=== PATIENT | female | born 1955 | race Caucasian/White ===

== ENCOUNTER 2019-07-10 09:49 | Inpatient (IN) | payer BC, MEDICARE ==
[~2019-07-10 09:49] MED LIST: Bisacodyl 5 MG Tab PO PRN; Cyclobenzaprine 10 MG Tab PO PRN; EPINEPHrine 1 MG/ML SDV ONE; HYDROmorphone 0.5 MG/0.5 ML Syringe IVPUSH PRN; Lactated Ringers 1,000 ML IV SCH; Lidocaine 1% 4 ML ONE; Lidocaine 1%/Sod Bicarbonate in NS 8.4% 1 ML Syringe IDERM PRN; Magnesium Hydroxide 400 MG/5 ML Susp 30 ML Cup PO PRN; Midazolam 1 MG/ML 2 ML SDV ONE; Naloxone 0.4 MG/ML SDV IVPUSH PRN; Ondansetron 4 MG/2 ML SDV IVPUSH PRN; Ondansetron 4 MG/2 ML SDV ONE; Propofol 200 MG/20 ML SDV ONE; Ropivacaine 0.5% 5 MG/ML 30 ML SDV ONE; Sennosides 8.6 MG Tab PO PRN; Sodium Chloride 0.9% 10 ML Syringe FLUSH PRN
[2019-07-10] MEDS ORDERED: Scopolamine 1.5 MG Transdermal Patch TOP SCH (10:18)
[2019-07-10] MEDS ORDERED: ceFAZolin 1 GM Vial ONE (10:27)
[2019-07-10] MEDS ORDERED: Bupivacaine 0.25% 10 ML SDV ONE (10:27)
[2019-07-10] MEDS ORDERED: fentaNYL 100 MCG/2 ML SDV IVPUSH PRN (10:33)
[2019-07-10] MEDS ORDERED: diphenhydrAMINE 50 MG/ML SDV IVPUSH PRN (10:33)
[2019-07-10] MEDS ORDERED: Ondansetron 4 MG/2 ML SDV IVPUSH PRN (10:33)
--- NOTE | 2019-07-10 10:37 | PCM.PREANE ---
Preanesthetic Assessment - Procedure Proposed Procedure: Left total knee arthroplasty - Anesthesia/Transfusion/Family Hx Anesthesia History: Prior Anesthesia Reaction Type of Anesthesia Reaction: Excessive Nausea/Vomiting (scop patch ordered ) Family History of Anesthesia Reaction: No Transfusion History: No Prior Transfusion(s) Intubation History: Unknown - Review of Systems General: No Symptoms Pulmonary: No Symptoms, Other (MEERA no CPAP) Cardiovascular: No Symptoms Gastrointestinal: No Symptoms Neurological: Tingling (left hand tingles due to neck per patient ) Other: Reports: None - Physical Assessment NPO Status Date: 07/09/19 NPO Status Time: 20:00 Vital Signs: Last Vital Signs Temp 36.7 C 07/10/19 10:10 Pulse 68 07/10/19 10:10 Resp 16 07/10/19 10:10 BP 160/93 H 07/10/19 10:10 Pulse Ox 94 L 07/10/19 10:10 Height: 1.6 m Weight: 85.132 kg ASA Class: 3 Mental Status: Alert & Oriented x3 Airway Class: Mallampati = 3 Dentition: Reports: Normal Dentition Thyro-Mental Finger Breadths: 3 Mouth Opening Finger Breadths: 4 ROM/Head Extension: Limited/Partial (pain and stiffness in neck due to DDD) Lungs: Clear to Auscultation, Normal Respiratory Effort Cardiovascular: Regular Rate, Regular Rhythm - Lab Values: Laboratory Last Values MRSA (PCR) Negative 06/30/19 13:10 - Allergies Allergies/Adverse Reactions: Allergies Allergy/AdvReac Type Severity Reaction Status Date / Time egg Allergy Anaphylactic Verified 07/07/19 12:46 Shock Penicillins Allergy Itching Verified 07/07/19 12:46 Sulfa (Sulfonamide Allergy Itching Verified 07/07/19 12:46 Antibiotics) morphine AdvReac Nausea and Verified 07/10/19 10:22 Vomiting [id number]-Pye-Cjv Reductase AdvReac Muscle Verified 07/07/19 13:00 Inhibitor Weakness - Blood Blood Available: No - Anesthesia Plan Pre-Op Medication Ordered: None - Acknowledgements Anesthesia Type Planned: Spinal Pt an Appropriate Candidate for the Planned Anesthesia: Yes Alternatives and Risks of Anesthesia Discussed w Pt/Guardian: Yes Pt/Guardian Understands and Agrees with Anesthesia Plan: Yes PreAnesthesia Questionnaire HEENT History: Reports: Impaired Vision Cardiovascular History: Reports: High Cholesterol Respiratory History: Reports: Sleep Apnea Gastrointestinal History: Reports: Irritable Bowel Syndrome, [employer] History: Reports: None Musculoskeletal History: Reports: Arthritis Other Musculoskeletal History: knee pain, low back pain Neurological History: Reports: Other (See Below) Other Neuro History: degenerative disc disease Psychiatric History: Reports: None Endocrine/Metabolic History: Reports: None Hematologic History: Reports: None Immunologic History: Reports: None Oncologic (Cancer) History: Reports: None Dermatologic History: Reports: Other (See Below) Other Dermatologic History: left forearm skin lesion - Past Surgical History Head Surgeries/Procedures: Reports: None HEENT Surgical History: Reports: Cataract Surgery, LASIK, Tonsillectomy Cardiovascular Surgical History: Reports: None Respiratory Surgical History: Reports: None GI Surgical History: Reports: None Female Surgical History: Reports: D&C, Tubal Ligation Male Surgical History: Reports: None Endocrine Surgical History: Reports: None Neurological Surgical History: Reports: None Oncologic Surgical History: Reports: None Dermatological Surgical History: Reports: None - SUBSTANCE USE Smoking Status *Q: Former Smoker Second Hand Smoke Exposure: No Days Per Week of Alcohol Use: 5 Number of Drinks Per Day: 1 Total Drinks Per Week: 5 Recreational Drug Use History: No - HOME MEDS Home Medications: Home Meds Acetaminophen [Tylenol Arthritis] 650 mg PO Q4HR PRN 07/07/19 [History] Ascorbic Acid [Vitamin C] 1,000 mg PO DAILY 07/07/19 [History] Calcium Carbonate [Calcium] 600 mg PO DAILY 07/07/19 [History] Cannabidiol (Cbd) Extract [CBD Oil] 2 cap PO BID 07/07/19 [History] Cholecalciferol (Vitamin D3) [Vitamin D3] 5,000 unit PO DAILY 07/07/19 [History] Cinnamon Bark [Cinnamon] 500 mg PO BID 07/07/19 [History] Cyanocobalamin (Vitamin B-12) [Vitamin B-12] 1,000 mcg PO DAILY 07/07/19 [ History] DULoxetine HCl [Duloxetine HCl] 60 mg PO DAILY 07/07/19 [History] Fluticasone Propionate [Flonase] 1 dose NASBOTH ASDIRECTED PRN 07/07/19 [History ] Lutein 6 mg PO DAILY 07/07/19 [History] Magnesium 250 mg PO BID 07/07/19 [History] Melatonin 10 mg PO BEDTIME PRN 07/07/19 [History] Maceo-3/DHA/Epa/Fish Oil [Fish Oil Dr 500 mg Softgel] 500 mg PO BID 07/07/19 [ History] Ubidecarenone [Coq-10] 200 mg PO DAILY 07/07/19 [History] - CURRENT (IN HOUSE) MEDS Current Meds: Current Medications Hydrocodone Bitart/Acetaminophen ([place] 325-5 Mg) 1 - 2 tab PO Q4H PRN PRN Reason: Pain Aspirin (Ecotrin) 325 mg PO BID [facility] Bisacodyl (Dulcolax) 5 mg PO DAILY PRN PRN Reason: Constipation Morphine Sulfate 8 mg/Epinephrine HCl 0.3 mg/Cefuroxime Sodium 750 mg/Ketorolac Tromethamine 30 mg/Sodium Chloride 27.9 ml 0 mg .XX ONETIME ONE Stop: 07/10/19 06:40 Cyclobenzaprine HCl (Flexeril) 5 mg PO BID PRN PRN Reason: Spasms Docusate Sodium (Colace) 100 mg PO BID [facility] Famotidine (Pepcid) 20 mg PO Q12H [facility] Hydromorphone HCl (Dilaudid) 0.2 mg IVPUSH Q2H PRN PRN Reason: Pain (moderate 4-6) Lactated Ringer's (Ringers, Lactated) 1,000 mls @ 125 mls/hr IV ASDIRECTED [facility] Stop: 07/10/19 23:00 Last Admin: 07/10/19 10:25 Dose: 125 mls/hr Cefazolin Sodium/Dextrose 2 gm (/ Premix) 50 mls @ 100 mls/hr IV Q8H [facility] Stop: 07/10/19 23:14 Ketorolac Tromethamine (Toradol) 15 mg IVPUSH Q6H PRN PRN Reason: Pain Lidocaine/Sodium Bicarbonate (Buffered Lidocaine 1% In Ns 8.4%) 0.25 ml IDERM ONETIME PRN PRN Reason: Prior to IV Start Stop: 07/10/19 18:00 Magnesium Hydroxide (Milk Of Magnesia) 30 ml PO BID PRN PRN Reason: Constipation Naloxone HCl (Narcan) 0.1 mg IVPUSH Q5M PRN PRN Reason: Oversedation Ondansetron HCl (Zofran) 4 mg IVPUSH Q6H PRN PRN Reason: Nausea/Vomiting Scopolamine (Transderm-Scop) 1.5 mg TOP ONETIME [facility] Stop: 07/10/19 16:00 Last Admin: 07/10/19 10:30 Dose: 1.5 mg Senna (Senna) 8.6 mg PO BID PRN PRN Reason: Constipation Sodium Chloride (Saline Flush) 10 ml FLUSH ASDIRECTED PRN PRN Reason: Keep Vein Open Stop: 07/10/19 18:00 Discontinued Medications Bupivacaine HCl (Sensorcaine-Mpf 0.25%) Confirm Administered Dose 30 ml .ROUTE .STK-MED ONE Stop: 07/10/19 10:28 Cefazolin Sodium (Ancef) Confirm Administered Dose 2 gm .ROUTE .STK-MED ONE Stop: 07/10/19 09:19 Cefazolin Sodium (Ancef) Confirm Administered Dose 2 gm .ROUTE .STK-MED ONE Stop: 07/10/19 10:28 Epinephrine HCl (Adrenalin) Confirm Administered Dose 1 mg .ROUTE .STK-MED ONE Stop: 07/10/19 08:56 Lidocaine HCl (Xylocaine-Mpf 1%) Confirm Administered Dose 4 mls @ as directed .ROUTE .STK-MED ONE Stop: 07/10/19 09:17 Iodine (Iodine 2% Mild Tincture) Confirm Administered Dose 30 ml .ROUTE .STK- MED ONE Stop: 07/10/19 10:28 Midazolam HCl (Versed 1 Mg/Ml) Confirm Administered Dose 2 mg .ROUTE .STK-MED ONE Stop: 07/10/19 09:15 Ondansetron HCl (Zofran) Confirm Administered Dose 4 mg .ROUTE .STK-MED ONE Stop: 07/10/19 09:18 Propofol (Diprivan 20 Ml) Confirm Administered Dose 200 mg .ROUTE .STK-MED ONE Stop: 07/10/19 09:15 Ropivacaine (Naropin 0.5%) Confirm Administered Dose 30 ml .ROUTE .STK-MED ONE Stop: 07/10/19 08:56 Tranexamic Acid (Cyklokapron) Confirm Administered Dose 1,000 mg .ROUTE .STK- MED ONE Stop: 07/10/19 10:28 Vancomycin HCl (Vancomycin) Confirm Administered Dose 1 gm .ROUTE .STK-MED ONE Stop: 07/10/19 10:28
[2019-07-10] MEDS ORDERED: Ketorolac 15 MG/ML SDV IVPUSH PRN (12:00)
[2019-07-10] MEDS: ceFAZolin 1 GM Vial ONE ×2 (12:54→13:16)
[2019-07-10] MEDS: Bupivacaine 0.25% 10 ML SDV ONE ×2 (12:54→13:20)
[2019-07-10] MEDS: Morphine 8 MG, EPINEPHrine 0.3 MG, Cefuroxime 750 MG, Ketorolac 30 MG, Sodium Chloride ... ONE ×10 (12:55→13:20)
[2019-07-10] MEDS: Iodine/Sodium Iodide 2% Tincture 30 ML Bottle ONE ×2 (12:55→13:15)
[2019-07-10] MEDS: Vancomycin 1 GM SDV ONE ×2 (12:56→13:24)
--- NOTE | 2019-07-10 13:57 | PCM.POSTAN ---
POST ANESTHESIA ASSESSMENT - MENTAL STATUS Mental Status: Alert - VITAL SIGNS Vital Signs: 98/61,97 2L, 92, 17, 97.7 Last Vital Signs Temp 36.7 C 07/10/19 10:10 Pulse 68 07/10/19 10:10 Resp 16 07/10/19 10:10 BP 160/93 H 07/10/19 10:10 Pulse Ox 94 L 07/10/19 10:10 - RESPIRATORY Respiratory Status: Respiratory Rate WNL, Airway Patent, O2 Saturation Stable, Supplemental Oxygen - CARDIOVASCULAR CV Status: Pulse Rate WNL, Blood Pressure Stable - GASTROINTESTINAL GI Status: No Symptoms - PAIN Pain Score: 0 - POST OP HYDRATION Hydration Status: Adequate & Stable
--- NOTE | 2019-07-10 14:17 | PCM.SN ---
- Free Text/Narrative Note: Left selective femoral nerve block at the adductor canal for post-procedure pain control under US guidance requested by Dr. Salas. Time Out: 1356 Start: 1356 End: 1405 Chart reviewed. Consent signed. Questions answered. Appropriate monitors applied. Time out performed. Left mid-shaft femur identified with ultrasound, scanning medially of femur, the femoral artery in the adductor canal visualized , and the femoral nerve located laterally to the artery. The skin was prepped lateral to the ultrasound probe with chlorahexadine times two. The 21ga 4 insulated block needle was inserted under direct ultrasound guidance into the adductor canal. 25mL of 0.5% ropivacaine with 1:200,000 epinephrine was injected circumferentially around the nerve with intermittent negative aspiration noted. Patient tolerated the procedure well. Sterile technique noted along with sterile gloves, mask, and sterile probe cover. See picture on progress note and vital signs on nurses notes. Block completed in PACU. Dewayne Samayoa CRNA
--- NOTE | 2019-07-10 14:32 | CR ---
Left knee: AP and lateral views of the left knee were obtained. Comparison: No prior left knee study. Knee prosthesis is seen. Components are aligned. Soft tissue air is noted. No acute bony abnormality is seen. Impression: 1. Satisfactory radiographic appearance of recently placed left knee prosthesis. Diagnostic code #2
[2019-07-10] MEDS ORDERED: Melatonin 3 MG Tab PO PRN (15:17)
[2019-07-10] MEDS ORDERED: FLUTICASONE PROPIONATE NASBOTH PRN (15:17)
[2019-07-10] MEDS: Acetaminophen/HYDROcodone 325-5 MG Tab PO PRN ×2 (17:15→21:09)
[2019-07-10] MEDS: ceFAZolin 2 GM in Premix Bag 1 BAG IV SCH (19:02)
[2019-07-10] MEDS: Docusate Sodium 100 MG Cap PO SCH (21:09)
[2019-07-10] MEDS: Famotidine 20 MG Tab PO SCH (21:09)
[2019-07-11] MEDS: Acetaminophen/HYDROcodone 325-5 MG Tab PO PRN ×3 (01:56→12:24)
[2019-07-11] MEDS: ceFAZolin 2 GM in Premix Bag 1 BAG IV SCH ×2 (02:55→10:16)
--- NOTE | 2019-07-11 07:47 | PCM.SURGPN ---
- General Info Date of Service: 07/11/19 POD#: 1 Functional Status: Reports: Pain Controlled, Tolerating Diet, Ambulating, Urinating, Incentive Spirometry, Other (The pt states she is doing well. Nursing states the pt has been doing well and pain is controlled.) - Patient Data Vitals - Most Recent: Last Vital Signs Temp 97.5 F 07/11/19 06:15 Pulse 81 07/11/19 06:15 Resp 15 07/10/19 19:41 BP 97/45 L 07/11/19 06:15 Pulse Ox 99 07/11/19 06:40 Weight - Most Recent: 187 lb 10.931 oz I&O - Last 24 Hours: Intake & Output 07/10/19 07/11/19 07/11/19 22:59 06:59 14:59 Intake Total 180 Balance 180 Lab Results Last 24 Hrs: Laboratory Results - last 24 hr 07/11/19 07/11/19 Range/Units 06:00 06:00 WBC 7.26 (3.98-10.04) K/mm3 RBC 3.56 L (3.98-5.22) M/mm3 Hgb 10.5 L (11.2-15.7) gm/dl Hct 32.9 L (34.1-44.9) % MCV 92.4 (79.4-94.8) fl MCH 29.5 (25.6-32.2) pg MCHC 31.9 L (32.2-35.5) g/dl RDW Std Deviation 39.3 (36.4-46.3) fL Plt Count 250 (182-369) K/mm3 MPV 9.3 L (9.4-12.3) fl Sodium 138 (136-145) mEq/L Potassium 4.0 (3.5-5.1) mEq/L Chloride 103 (98-107) mEq/L Carbon Dioxide 29 (21-32) mEq/L Anion Gap 10.0 (5-15) BUN 15 (7-18) mg/dL Creatinine 0.8 (0.55-1.02) mg/dL Est Cr Clr Drug Dosing 57.99 mL/min Estimated GFR (MDRD) > 60 (>60) mL/min BUN/Creatinine Ratio 18.8 H (14-18) Glucose 105 (80-115) mg/dL Calcium 8.7 (8.5-10.1) mg/dL Total Bilirubin 0.5 (0.2-1.0) mg/dL AST 15 (15-37) U/L ALT 21 (14-59) U/L Alkaline Phosphatase 72 (46-116) U/L Total Protein 5.9 L (6.4-8.2) g/dl Albumin 2.9 L (3.4-5.0) g/dl Globulin 3.0 gm/dL Albumin/Globulin Ratio 1.0 (1-2) Med Orders - Current: Current Medications Hydrocodone Bitart/Acetaminophen ([place] 325-5 Mg) 1 - 2 tab PO Q4H PRN PRN Reason: Pain Last Admin: 07/11/19 05:57 Dose: 2 tab Aspirin (Ecotrin) 325 mg PO BID [facility] Bisacodyl (Dulcolax) 5 mg PO DAILY PRN PRN Reason: Constipation Calcium Carbonate/Glycine (Calcium Carbonate) 600 mg PO DAILY [facility] Cholecalciferol (Vitamin D3) 5,000 unit PO DAILY [facility] Cyanocobalamin (Vitamin B12) 1,000 mcg PO DAILY [facility] Cyclobenzaprine HCl (Flexeril) 5 mg PO BID PRN PRN Reason: Spasms Docusate Sodium (Colace) 100 mg PO BID [facility] Last Admin: 07/10/19 21:09 Dose: 100 mg Duloxetine HCl (Cymbalta) 60 mg PO DAILY [facility] Famotidine (Pepcid) 20 mg PO Q12H [facility] Last Admin: 07/10/19 21:09 Dose: 20 mg Hydromorphone HCl (Dilaudid) 0.2 mg IVPUSH Q2H PRN PRN Reason: Pain (moderate 4-6) Cefazolin Sodium/Dextrose 2 gm (/ Premix) 50 mls @ 100 mls/hr IV Q8H [facility] Stop: 07/11/19 11:29 Last Infusion: 07/11/19 03:45 Dose: Infused Ketorolac Tromethamine (Toradol) 15 mg IVPUSH Q6H PRN PRN Reason: Pain Magnesium Hydroxide (Milk Of Magnesia) 30 ml PO BID PRN PRN Reason: Constipation Magnesium Oxide (Magnesium Oxide) 400 mg PO BID [facility] Melatonin (Melatonin) 9 mg PO BEDTIME PRN PRN Reason: Insomnia Naloxone HCl (Narcan) 0.1 mg IVPUSH Q5M PRN PRN Reason: Oversedation Ondansetron HCl (Zofran) 4 mg IVPUSH Q6H PRN PRN Reason: Nausea/Vomiting Last Admin: 07/11/19 06:03 Dose: 4 mg Senna (Senna) 8.6 mg PO BID PRN PRN Reason: Constipation Discontinued Medications Bupivacaine HCl (Sensorcaine-Mpf 0.25%) Confirm Administered Dose 30 ml .ROUTE .STK-MED ONE Stop: 07/10/19 10:28 Bupivacaine HCl (Sensorcaine-Mpf 0.25%) Confirm Administered Dose 10 ml .ROUTE .STK-MED ONE Stop: 07/10/19 10:54 Last Admin: 07/10/19 13:20 Dose: 30 ml Cefazolin Sodium (Ancef) Confirm Administered Dose 2 gm .ROUTE .STK-MED ONE Stop: 07/10/19 09:19 Last Admin: 07/10/19 13:16 Dose: 2 gm Cefazolin Sodium (Ancef) Confirm Administered Dose 2 gm .ROUTE .STK-MED ONE Stop: 07/10/19 10:28 Morphine Sulfate 8 mg/Epinephrine HCl 0.3 mg/Cefuroxime Sodium 750 mg/Ketorolac Tromethamine 30 mg/Sodium Chloride 27.9 ml 0 mg .XX ONETIME ONE Stop: 07/10/19 11:31 Last Admin: 07/10/19 13:20 Dose: 788.3 mg Diphenhydramine HCl (Benadryl) 25 mg IVPUSH Q6H PRN PRN Reason: pruritis Stop: 07/10/19 13:00 Epinephrine HCl (Adrenalin) Confirm Administered Dose 1 mg .ROUTE .STK-MED ONE Stop: 07/10/19 08:56 Fentanyl (Sublimaze) 50 mcg IVPUSH Q5M PRN PRN Reason: Pain Stop: 07/10/19 13:00 Lactated Ringer's (Ringers, Lactated) 1,000 mls @ 125 mls/hr IV ASDIRECTED [facility] Stop: 07/10/19 23:00 Last Admin: 07/10/19 10:25 Dose: 125 mls/hr Lidocaine HCl (Xylocaine-Mpf 1%) Confirm Administered Dose 4 mls @ as directed .ROUTE .STK-MED ONE Stop: 07/10/19 09:17 Iodine (Iodine 2% Mild Tincture) Confirm Administered Dose 30 ml .ROUTE .STK- MED ONE Stop: 07/10/19 10:28 Last Admin: 07/10/19 13:15 Dose: 18 ml Lidocaine/Sodium Bicarbonate (Buffered Lidocaine 1% In Ns 8.4%) 0.25 ml IDERM ONETIME PRN PRN Reason: Prior to IV Start Stop: 07/10/19 18:00 Last Admin: 07/10/19 10:24 Dose: 0.25 ml Midazolam HCl (Versed 1 Mg/Ml) Confirm Administered Dose 2 mg .ROUTE .STK-MED ONE Stop: 07/10/19 09:15 Non-Formulary Medication (Fluticasone Propionate [Flonase]) 1 dose NASBOTH ASDIRECTED PRN PRN Reason: as directed Non-Formulary Medication (Lutein [Lutein]) 6 mg PO DAILY [facility] Non-Formulary Medication (Ubidecarenone) 200 mg PO DAILY [facility] Ondansetron HCl (Zofran) Confirm Administered Dose 4 mg .ROUTE .STK-MED ONE Stop: 07/10/19 09:18 Ondansetron HCl (Zofran) 4 mg IVPUSH ONETIME PRN PRN Reason: Nausea/Vomiting Stop: 07/10/19 13:00 Last Admin: 07/10/19 14:11 Dose: 4 mg Propofol (Diprivan 20 Ml) Confirm Administered Dose 200 mg .ROUTE .STK-MED ONE Stop: 07/10/19 09:15 Ropivacaine (Naropin 0.5%) Confirm Administered Dose 30 ml .ROUTE .STK-MED ONE Stop: 07/10/19 08:56 Scopolamine (Transderm-Scop) 1.5 mg TOP ONETIME [facility] Stop: 07/10/19 16:00 Last Admin: 07/10/19 10:30 Dose: 1.5 mg Sodium Chloride (Saline Flush) 10 ml FLUSH ASDIRECTED PRN PRN Reason: Keep Vein Open Stop: 07/10/19 18:00 Tranexamic Acid (Cyklokapron) Confirm Administered Dose 1,000 mg .ROUTE .STK- MED ONE Stop: 07/10/19 10:28 Last Admin: 07/10/19 13:31 Dose: 1,000 mg Vancomycin HCl (Vancomycin) Confirm Administered Dose 1 gm .ROUTE .STK-MED ONE Stop: 07/10/19 10:28 Last Admin: 07/10/19 13:24 Dose: 1 gm - Exam Wound/Incisions: Dressing Dry and Intact General: Alert, Cooperative, No Acute Distress Lungs: Normal Respiratory Effort Extremities: Other (NVS intact for BLE. Gallito's negative. ) - Problem List Review Problem List Initiated/Reviewed/Updated: Yes - My Orders Last 24 Hours: Active Orders 24 hr Category Date Time Status Communication Order [RC] ROUTINE Care 07/10/19 10:33 Active Cooling Warming Measures [RC] ASDIRECTED Care 07/10/19 10:33 Inactive Notify Provider [RC] ASDIRECTED Care 07/10/19 10:33 Active Oxygen Therapy [RC] ASDIRECTED Care 07/10/19 10:33 Active Pulse Oximetry [RC] ASDIRECTED Care 07/10/19 10:33 Active Ready for Discharge [RC] PER UNIT ROUTINE Care 07/11/19 07:45 Ordered Vital Signs [RC] Q15M Care 07/10/19 10:33 Inactive Regular Diet [DIET] Diet 07/10/19 Lunch Active Aspirin [Ecotrin] Med 07/11/19 09:00 Active 325 mg PO BID Calcium Carbonate Med 07/11/19 09:00 Active 600 mg PO DAILY Cholecalciferol (Vitamin D3) [Vitamin D3] Med 07/11/19 09:00 Active 5,000 unit PO DAILY Cyanocobalamin (Vitamin B12) [Vitamin B12] Med 07/11/19 09:00 Active 1,000 mcg PO DAILY DULoxetine [Cymbalta] Med 07/11/19 09:00 Active 60 mg PO DAILY Docusate Sodium [Colace] Med 07/10/19 21:00 Active 100 mg PO BID Famotidine [Pepcid] Med 07/10/19 21:00 Active 20 mg PO Q12H Ketorolac [Toradol] Med 07/10/19 12:00 Active 15 mg IVPUSH Q6H PRN Magnesium Oxide Med 07/11/19 09:00 Active 400 mg PO BID Melatonin Med 07/10/19 15:17 Active 9 mg PO BEDTIME PRN ceFAZolin [Ancef] 2 gm Med 07/10/19 19:00 Active Premix Bag 1 bag IV Q8H Medication Orders Hydrocodone Bitart/Acetaminophen ([place] 325-5 Mg) 1 - 2 tab PO Q4H PRN PRN Reason: Pain Last Admin: 07/11/19 05:57 Dose: 2 tab Admin: 07/11/19 01:56 Dose: 2 tab Admin: 07/10/19 21:09 Dose: 2 tab Admin: 07/10/19 17:15 Dose: 2 tab Aspirin (Ecotrin) 325 mg PO BID [facility] Bisacodyl (Dulcolax) 5 mg PO DAILY PRN PRN Reason: Constipation Calcium Carbonate/Glycine (Calcium Carbonate) 600 mg PO DAILY [facility] Cholecalciferol (Vitamin D3) 5,000 unit PO DAILY [facility] Cyanocobalamin (Vitamin B12) 1,000 mcg PO DAILY [facility] Cyclobenzaprine HCl (Flexeril) 5 mg PO BID PRN PRN Reason: Spasms Docusate Sodium (Colace) 100 mg PO BID [facility] Last Admin: 07/10/19 21:09 Dose: 100 mg Duloxetine HCl (Cymbalta) 60 mg PO DAILY [facility] Famotidine (Pepcid) 20 mg PO Q12H [facility] Last Admin: 07/10/19 21:09 Dose: 20 mg Hydromorphone HCl (Dilaudid) 0.2 mg IVPUSH Q2H PRN PRN Reason: Pain (moderate 4-6) Cefazolin Sodium/Dextrose 2 gm (/ Premix) 50 mls @ 100 mls/hr IV Q8H [facility] Stop: 07/11/19 11:29 Last Infusion: 07/11/19 03:45 Dose: 100 mls/hr Admin: 07/11/19 02:55 Dose: 100 mls/hr Infusion: 07/10/19 19:35 Dose: 100 mls/hr Admin: 07/10/19 19:02 Dose: 100 mls/hr Ketorolac Tromethamine (Toradol) 15 mg IVPUSH Q6H PRN PRN Reason: Pain Magnesium Hydroxide (Milk Of Magnesia) 30 ml PO BID PRN PRN Reason: Constipation Magnesium Oxide (Magnesium Oxide) 400 mg PO BID [facility] Melatonin (Melatonin) 9 mg PO BEDTIME PRN PRN Reason: Insomnia Naloxone HCl (Narcan) 0.1 mg IVPUSH Q5M PRN PRN Reason: Oversedation Ondansetron HCl (Zofran) 4 mg IVPUSH Q6H PRN PRN Reason: Nausea/Vomiting Last Admin: 07/11/19 06:03 Dose: 4 mg Senna (Senna) 8.6 mg PO BID PRN PRN Reason: Constipation - Assessment Assessment (Free Text/Narrative):: POD#1 - left TKA - Plan Plan (Free Text/Narrative):: 1. Discharge to home today. 2. 325mg ASA PO BID, frequent mobility, TEDs. 3. Outpatient therapy. 4. Hgb 10.5. The pt's case was discussed with Dr. Salas.
[2019-07-11] MEDS ORDERED: Magnesium Oxide 400 MG Tab PO SCH (09:00)
[2019-07-11] MEDS ORDERED: Aspirin 325 MG Tab.EC PO SCH (09:00)
[2019-07-11] MEDS ORDERED: Cyanocobalamin (Vitamin B12) 1,000 MCG Tab PO SCH (09:00)
[2019-07-11] MEDS ORDERED: DULoxetine 30 MG Cap PO SCH (09:00)
[2019-07-11] MEDS ORDERED: Calcium Carbonate 600 MG Tab PO SCH (09:00)
[2019-07-11] MEDS ORDERED: Non-Formulary Medication 1 Each (Lutein [Lutein] 6 MG) PO SCH (09:00)
[2019-07-11] MEDS ORDERED: Non-Formulary Medication 1 Each (Ubidecarenone 200 MG) PO SCH (09:00)
[2019-07-11] MEDS ORDERED: Cholecalciferol (Vitamin D3) 5,000 UNIT Tab PO SCH (09:00)
[2019-07-11] MEDS: Docusate Sodium 100 MG Cap PO SCH (09:32)
[2019-07-11] MEDS: Famotidine 20 MG Tab PO SCH (09:32)
--- NOTE | 2019-07-11 11:41 | PCM48HPAN ---
Post Anesthesia Note - EVALUATION WITHIN 48HRS OF ANESTHETIC Vital Signs in Normal Range: Yes Patient Participated in Evaluation: Yes Respiratory Function Stable: Yes Airway Patent: Yes Cardiovascular Function Stable: Yes Hydration Status Stable: Yes Pain Control Satisfactory: Yes Nausea and Vomiting Control Satisfactory: Yes Mental Status Recovered: Yes Vital Signs: Last Vital Signs Temp 36.4 C 07/11/19 06:15 Pulse 81 07/11/19 06:15 Resp 15 07/10/19 19:41 BP 97/45 L 07/11/19 06:15 Pulse Ox 99 07/11/19 06:40
[2019-07-11] MEDS ORDERED: Albuterol 0.083% 2.5 MG/3 ML Neb Soln NEB ONE (12:44)
--- NOTE | 2019-07-13 15:54 | PCM.DCSUM1 ---
Discharge Summary - Hospital Course Brief History: Neela is a 64 yo female who underwent left TKA with Dr. Salas on 07-10-2019. The procedure was completed under spinal anesthesia with post- operative regional block. The pt tolerated the procedure well and was admitted to the [facility] under Medical-Surgical status. The pt's Hospital course was uneventful. The pt's Hgb on POD#1 was 10.5. On POD#1, 325mg ASA BID was initiated for VTE prophylaxis. SCDs and TEDs were also ordered. A Mepilex dressing was placed at the incision site at the time of surgery and remained clean and dry. The pt participated in P.T. and O.T. and progressed well. The pt was allowed to WBAT. On POD#1, the pt was deemed appropriate to discharge to home. - Discharge Data Discharge Date: 07/11/19 Discharge Disposition: Home, Self-Care 01 Condition: Good - Referral to Home Health Primary Care Physician: Caridad Bush MD - Patient Summary/Data Consults: Consultations 07/10/19 06:38 OT Evaluation and Treatment [CONS] Routine PT Evaluation and Treatment [CONS] Routine - Patient Instructions Diet: Usual Diet as Tolerated Activity: Apply Ice, As Tolerated, Elevate Extremity, Full Weight Bearing Driving: Do Not Drive Showering/Bathing: May Shower Wound/Incision Care: Keep Operative Site/Wound Site Clean and Dry, Do NOT Change Dressing Notify Provider of: Fever, Increased Pain, Swelling and Redness, Drainage, Nausea and/or Vomiting Other/Special Instructions: Please get up and moving around EVERY HOUR while awake. This helps to prevent blood clots. Please use your walker and have help with mobility as needed. Take a short walk in your home every hour while awake. Please take 325mg Aspirin TWICE daily. The aspirin is being used for blood clot prevention and not for pain management so please do not miss a dose of the medication. You could use a medication like Pepcid or Tagamet and a medication like Prilosec or Nexium to protect your stomach while you are using the aspirin. At home, please complete the exercises that you learned during the Hospital stay. Schedule for physical therapy. Use the pain medication as needed. The medication may cause drowsiness and constipation. Contact your primary care provider for instructions if you are constipated. You may use a stool softener like docusate sodium or Colace 100mg twice daily and/or a laxative like Miralax daily for constipation. Increase your water and fiber intake while you are using the pain medication. Discontinue use of the pain medication as soon as able. Please do not use other medications that may cause drowsiness (other pain medications, anxiety pills, cold medications, sleeping pills, etc) while using the prescription pain medication. Do not use alcohol while using the pain medication. You may use acetaminophen or Tylenol for pain management, however, please ensure you are not using over 4000 mg or 4 grams of acetaminophen per day from all sources. Your pain medication has 325mg of acetaminophen per tablet. At this time, please do not use ibuprofen (Motrin, Advil) or naproxen (Aleve) for pain management as you are using the aspirin. When the aspirin course is completed in 4 weeks, you could use ibuprofen or naproxen for pain management (if this is allowed by your primary care provider) . Wear the ZOE hose during the day and you may remove these at night. Elevate the limb to decrease swelling. Place ice to the area often. Place a towel between your skin and the blue pad. Use the incentive spirometer often. Take deep breaths throughout the day. Please keep the dressing in place until follow -up. Notify the Clinic if the dressing becomes saturated. Increase your protein intake while you are healing. If you have diabetes, please closely monitor your blood sugars and notify your primary care provider with abnormal values. Elevated blood sugars increases the risk of infection. You may resume use of herbal medications in 2 weeks. Call the Clinic with questions or concerns - [phone]. - Discharge Plan *PRESCRIPTION DRUG MONITORING PROGRAM REVIEWED*: No *COPY OF PRESCRIPTION DRUG MONITORING REPORT IN PATIENT PETE: No Prescriptions/Med Rec: Acetaminophen/HYDROcodone [[place] 325-5 MG] 1 - 2 tab PO Q4H PRN #60 tablet PRN Reason: Pain Aspirin [Ecotrin EC] 325 mg PO BID #60 tab.ec Cyclobenzaprine [Flexeril] 10 mg PO BID PRN #20 tablet PRN Reason: Spasms Home Medications: Home Meds Acetaminophen [Tylenol Arthritis] 650 mg PO Q4HR PRN 07/07/19 [History] Calcium Carbonate [Calcium] 600 mg PO DAILY 07/07/19 [History] Cholecalciferol (Vitamin D3) [Vitamin D3] 5,000 unit PO DAILY 07/07/19 [History] Cyanocobalamin (Vitamin B-12) [Vitamin B-12] 1,000 mcg PO DAILY 07/07/19 [ History] DULoxetine HCl [Duloxetine HCl] 60 mg PO DAILY 07/07/19 [History] Fluticasone Propionate [Flonase] 1 dose NASBOTH ASDIRECTED PRN 07/07/19 [History ] Lutein 6 mg PO DAILY 07/07/19 [History] Magnesium 250 mg PO BID 07/07/19 [History] Melatonin 10 mg PO BEDTIME PRN 07/07/19 [History] Ubidecarenone [Coq-10] 200 mg PO DAILY 07/07/19 [History] Acetaminophen/HYDROcodone [[place] 325-5 MG] 1 - 2 tab PO Q4H PRN #60 tablet 07/11 [Rx] Aspirin [Ecotrin EC] 325 mg PO BID #60 tab.ec 07/11/19 [Rx] Bisacodyl [Dulcolax] 5 mg PO DAILY PRN tablet 07/11/19 [Rx] Cyclobenzaprine [Flexeril] 10 mg PO BID PRN #20 tablet 07/11/19 [Rx] Docusate Sodium [Colace] 100 mg PO BID cap 07/11/19 [Rx] Famotidine [Pepcid] 20 mg PO Q12H tablet 07/11/19 [Rx] Magnesium Hydroxide [Milk of Magnesia] 30 ml PO BID PRN cup 07/11/19 [Rx] Sennosides [Senna] 8.6 mg PO BID PRN tablet 07/11/19 [Rx] Referrals: Tammy King, RAHEL [Physician Utility Locator] - - Discharge Summary/Plan Comment DC Time >30 min.: No - Patient Data Vitals - Most Recent: Last Vital Signs Temp 99.0 F 07/11/19 09:48 Pulse 80 07/11/19 13:28 Resp 16 07/11/19 09:48 BP 114/51 L 07/11/19 09:48 Pulse Ox 93 L 07/11/19 13:28 Weight - Most Recent: 187 lb 10.931 oz Med Orders - Current: Current Medications Discontinued Medications Hydrocodone Bitart/Acetaminophen ([place] 325-5 Mg) 1 - 2 tab PO Q4H PRN PRN Reason: Pain Last Admin: 07/11/19 12:24 Dose: 2 tab Albuterol (Proventil Neb Soln) 2.5 mg NEB ONETIME ONE Stop: 07/11/19 12:45 Last Admin: 07/11/19 13:06 Dose: 2.5 mg Aspirin (Ecotrin) 325 mg PO BID [facility] Last Admin: 07/11/19 09:31 Dose: 325 mg Bisacodyl (Dulcolax) 5 mg PO DAILY PRN PRN Reason: Constipation Bupivacaine HCl (Sensorcaine-Mpf 0.25%) Confirm Administered Dose 30 ml .ROUTE .STK-MED ONE Stop: 07/10/19 10:28 Bupivacaine HCl (Sensorcaine-Mpf 0.25%) Confirm Administered Dose 10 ml .ROUTE .STK-MED ONE Stop: 07/10/19 10:54 Last Admin: 07/10/19 13:20 Dose: 30 ml Calcium Carbonate/Glycine (Calcium Carbonate) 600 mg PO DAILY [facility] Last Admin: 07/11/19 09:33 Dose: 600 mg Cefazolin Sodium (Ancef) Confirm Administered Dose 2 gm .ROUTE .STK-MED ONE Stop: 07/10/19 09:19 Last Admin: 07/10/19 13:16 Dose: 2 gm Cefazolin Sodium (Ancef) Confirm Administered Dose 2 gm .ROUTE .STK-MED ONE Stop: 07/10/19 10:28 Cholecalciferol (Vitamin D3) 5,000 unit PO DAILY [facility] Last Admin: 07/11/19 09:32 Dose: 5,000 unit Morphine Sulfate 8 mg/Epinephrine HCl 0.3 mg/Cefuroxime Sodium 750 mg/Ketorolac Tromethamine 30 mg/Sodium Chloride 27.9 ml 0 mg .XX ONETIME ONE Stop: 07/10/19 11:31 Last Admin: 07/10/19 13:20 Dose: 788.3 mg Cyanocobalamin (Vitamin B12) 1,000 mcg PO DAILY [facility] Last Admin: 07/11/19 09:31 Dose: 1,000 mcg Cyclobenzaprine HCl (Flexeril) 5 mg PO BID PRN PRN Reason: Spasms Last Admin: 07/11/19 09:42 Dose: 5 mg Diphenhydramine HCl (Benadryl) 25 mg IVPUSH Q6H PRN PRN Reason: pruritis Stop: 07/10/19 13:00 Docusate Sodium (Colace) 100 mg PO BID [facility] Last Admin: 07/11/19 09:32 Dose: 100 mg Duloxetine HCl (Cymbalta) 60 mg PO DAILY [facility] Last Admin: 07/11/19 09:30 Dose: 60 mg Epinephrine HCl (Adrenalin) Confirm Administered Dose 1 mg .ROUTE .STK-MED ONE Stop: 07/10/19 08:56 Famotidine (Pepcid) 20 mg PO Q12H [facility] Last Admin: 07/11/19 09:32 Dose: 20 mg Fentanyl (Sublimaze) 50 mcg IVPUSH Q5M PRN PRN Reason: Pain Stop: 07/10/19 13:00 Hydromorphone HCl (Dilaudid) 0.2 mg IVPUSH Q2H PRN PRN Reason: Pain (moderate 4-6) Lactated Ringer's (Ringers, Lactated) 1,000 mls @ 125 mls/hr IV ASDIRECTED [facility] Stop: 07/10/19 23:00 Last Admin: 07/10/19 10:25 Dose: 125 mls/hr Cefazolin Sodium/Dextrose 2 gm (/ Premix) 50 mls @ 100 mls/hr IV Q8H [facility] Stop: 07/11/19 11:29 Last Admin: 07/11/19 10:16 Dose: 100 mls/hr Lidocaine HCl (Xylocaine-Mpf 1%) Confirm Administered Dose 4 mls @ as directed .ROUTE .STK-MED ONE Stop: 07/10/19 09:17 Iodine (Iodine 2% Mild Tincture) Confirm Administered Dose 30 ml .ROUTE .STK- MED ONE Stop: 07/10/19 10:28 Last Admin: 07/10/19 13:15 Dose: 18 ml Ketorolac Tromethamine (Toradol) 15 mg IVPUSH Q6H PRN PRN Reason: Pain Last Admin: 07/11/19 09:41 Dose: 15 mg Lidocaine/Sodium Bicarbonate (Buffered Lidocaine 1% In Ns 8.4%) 0.25 ml IDERM ONETIME PRN PRN Reason: Prior to IV Start Stop: 07/10/19 18:00 Last Admin: 07/10/19 10:24 Dose: 0.25 ml Magnesium Hydroxide (Milk Of Magnesia) 30 ml PO BID PRN PRN Reason: Constipation Magnesium Oxide (Magnesium Oxide) 400 mg PO BID [facility] Last Admin: 07/11/19 09:33 Dose: 400 mg Melatonin (Melatonin) 9 mg PO BEDTIME PRN PRN Reason: Insomnia Midazolam HCl (Versed 1 Mg/Ml) Confirm Administered Dose 2 mg .ROUTE .STK-MED ONE Stop: 07/10/19 09:15 Naloxone HCl (Narcan) 0.1 mg IVPUSH Q5M PRN PRN Reason: Oversedation Non-Formulary Medication (Fluticasone Propionate [Flonase]) 1 dose NASBOTH ASDIRECTED PRN PRN Reason: as directed Non-Formulary Medication (Lutein [Lutein]) 6 mg PO DAILY [facility] Non-Formulary Medication (Ubidecarenone) 200 mg PO DAILY [facility] Ondansetron HCl (Zofran) 4 mg IVPUSH Q6H PRN PRN Reason: Nausea/Vomiting Last Admin: 07/11/19 06:03 Dose: 4 mg Ondansetron HCl (Zofran) Confirm Administered Dose 4 mg .ROUTE .STK-MED ONE Stop: 07/10/19 09:18 Ondansetron HCl (Zofran) 4 mg IVPUSH ONETIME PRN PRN Reason: Nausea/Vomiting Stop: 07/10/19 13:00 Last Admin: 07/10/19 14:11 Dose: 4 mg Propofol (Diprivan 20 Ml) Confirm Administered Dose 200 mg .ROUTE .STK-MED ONE Stop: 07/10/19 09:15 Ropivacaine (Naropin 0.5%) Confirm Administered Dose 30 ml .ROUTE .STK-MED ONE Stop: 07/10/19 08:56 Scopolamine (Transderm-Scop) 1.5 mg TOP ONETIME [facility] Stop: 07/10/19 16:00 Last Admin: 07/10/19 10:30 Dose: 1.5 mg Senna (Senna) 8.6 mg PO BID PRN PRN Reason: Constipation Sodium Chloride (Saline Flush) 10 ml FLUSH ASDIRECTED PRN PRN Reason: Keep Vein Open Stop: 07/10/19 18:00 Tranexamic Acid (Cyklokapron) Confirm Administered Dose 1,000 mg .ROUTE .STK- MED ONE Stop: 07/10/19 10:28 Last Admin: 07/10/19 13:31 Dose: 1,000 mg Vancomycin HCl (Vancomycin) Confirm Administered Dose 1 gm .ROUTE .[facility] ONE Stop: 07/10/19 10:28 Last Admin: 07/10/19 13:24 Dose: 1 gm
--- NOTE | 2019-07-14 13:34 | PCM.OPNOTE ---
- General Post-Op/Procedure Note Date of Surgery/Procedure: 07/10/19 Operative Procedure(s): left total knee arthroplasty Pre Op Diagnosis: left knee osteoarthrosis Post-Op Diagnosis: Same Anesthesia Technique: Local, MAC, Spinal Primary Surgeon: Hesham Salas Anesthesia Provider: Lida Dobbins Consumer Safety Inspector: Tammy King Consumer Safety Inspector: Lucia Handley EBDeep in mLs: 550 Complications: None Condition: Good Free Text/Narrative:: size 5 femur 4 tibia 9mm 32x10
--- NOTE | 2019-07-14 14:08 | OR ---
DATE OF OPERATION: 07/10/2019 SURGEON: Hesham Salas MD OPERATION PERFORMED: Left total knee arthroplasty. PREOPERATIVE DIAGNOSIS: Left knee osteoarthrosis. POSTOPERATIVE DIAGNOSIS: Left knee osteoarthrosis. ANESTHESIA: Local MAC with spinal. ANESTHESIA PROVIDER: Lida Dobbins. ASSISTANTS: Tammy King PA-C, and Lucia Handley LPN. ESTIMATED BLOOD LOSS: 550 mL. COMPLICATIONS: None. CONDITION: Stable. IMPLANTS: 1. [place] size 5 press-fit CR femur. 2. Sotero size 4 press-fit tibial baseplate. 3. [place] size 4, 9 mm CS polyethylene insert. 4. [place] size 32 x 10 mm press-fit asymmetric patella. DESCRIPTION OF PROCEDURE: The patient was identified in the preop holding area. Proper site was marked and identified by the surgeon. The patient was taken back to the operating theater. After adequate anesthesia, the patient's left lower extremity had a nonsterile tourniquet applied and it was sterilely prepped and draped in the usual sterile fashion. OR time-out was performed. The patient received 2 g IV Ancef. At this time, the left lower extremity was exsanguinated. Tourniquet was insufflated to 300 mmHg. Standard medial parapatellar incision was made. Medial parapatellar arthrotomy was created. Deep fibers of the MCL were raised and anterior fat pad was resected. At this time, attention was turned to the patella. Patella measured a 23, it was resected to a 13 for a 32 x 10 mm patella. Drill holes were then drilled and found to be in adequate position. The drill was then drilled in the distal femur and the intramedullary distal femoral cutting guide was then placed. 8 mm was resected off the distal femur and was found to be an adequate resection. Sizing guide was placed. It was found to be a size 5 press-fit CR femur that was shown on the implant record at the beginning of this dictation. The drill holes were drilled for the epicondylar axis using [place] line and epicondyles as reference. At this time, the 4-in-1 cutting block was placed. An anterior posterior and anterior and posterior chamfer cuts were then completed. Attention was turned to the tibia. The posterior medial lateral retractors were placed. The extramedullary tibial guide was placed. It was placed in the old footprint of the ACL. It was aligned with the center of the ankle and 0 degrees of slope, 9 mm was then resected off the unaffected side. There was found to be an acceptable reduction. At this time, posterior osteophytes were removed along with medial and lateral meniscus. A trial implant was placed with a correct sized tibia that was mentioned at the beginning of the dictation. A Sotero size 4, 9 mm CS polyethylene insert was then placed. The patient's knee was brought through range of motion. The patella was tracking centrally and was stable to varus and valgus stress. Alignment was found to be roughly at 0 degrees. The tibia was stamped and drilled in proper rotation. The universal tibial base plate was impacted in place. Next, the [place] size 5 press-fit CR femur impacted into place and the Sotero size 4, 9 mm CS polyethylene insert was placed. The patient's knee was brought into full extension. The patella was then press-fit in place at this time. Tourniquet was deflated. One liter dilute Betadine solution was irrigated through the knee along with 3 L of pulse lavage irrigation with Ancef. Periarticular injection was then completed. The patient's knee was brought through a range of motion. Once the cement had time to set up and it was found to be stable to varus valgus stress, the patella was tracking centrally with full range of motion. At this time, a #2 barbed suture was used for closure of the medial parapatellar arthrotomy. Topical tranexamic acid was placed. 2-0 Vicryl was used subcutaneously, Prineo was used for the skin. The patient tolerated the procedure well and was sent to the PACU in stable condition. MMODAL /[id number]
== END 2019-07-11 13:55 | disposition home or self-care (01) | DRG 302 ==
LOC: JD.SDS 09:49 → JD.OB 15:00 → JD.SDS 15:18 → JD.OB 15:18
PROVIDERS: ADMIT Orthopaedic Surgery; ATTEND Orthopaedic Surgery
PROC: 0SRD0JA Replacement of Left Knee Joint with Synthetic Substitute, Uncemented, Open Approach (ICD-10-PCS; principal; 2019-07-10)
DX: M17.12 Unilateral primary osteoarthritis, left knee (principal); E78.00 Pure hypercholesterolemia, unspecified; G47.33 Obstructive sleep apnea (adult) (pediatric); Z88.0 Allergy status to penicillin; Z88.2 Allergy status to sulfonamides; Z88.5 Allergy status to narcotic agent; Z91.012 Allergy to eggs; Z88.8 Allergy status to other drugs, medicaments and biological substances; Z98.49 Cataract extraction status, unspecified eye; Z87.891 Personal history of nicotine dependence
CPT/HCPCS: 01402; 36415; 64450; 73560-26-LT; 73560-LT; 80053; 85027; 87641; 94640; 97110-GP; 97116-GP; 97161-GP; 97165-GO; 97535-GO; A9270-GY; C1776; J0171; J0690; J0697; J1885; J2001; J2250; J2270; J2405; J2704; J2795; J3370; J3490; J7120